=== PATIENT | female | born 1995 | race Caucasian/White ===

== ENCOUNTER 2017-04-10 20:09 | Emergency (ER) | payer MEDICAID, SELFPAY ==
[2017-04-10 20:10] VITALS: BP 120/75; PULSE 113; RESP 18; TEMP 37.4; O2SAT 99; BMI 25.8
--- NOTE | 2017-04-10 20:54 | ED.VISSUMM ---
- ER Visit Summary Date of Service: 04/10/17 Chief Complaint: [Redness and swelling to chin] History of Present Illness: The patient is a 21 F [resents the emergency department complaining of pain, redness, swelling to the left lower chin. Patient states that she slipped and fell yesterday and struck her chin on bathroom counter. No loss of consciousness. Patient did bite the inside of her left cheek. This morning she woke up and noted increased redness and swelling. Patient denies any fevers.] Physical Examination: [HEENT-PERRLA, EOMI. Cranial nerves II through XII grossly intact. TMs clear. Mucous membranes moist. No adenopathy. Patient has acne. Patient is noted to have soft tissue swelling to the left portion of the chin and submandibular region with what appears to be abrasion and suspected impetigo like lesion. Patient does have bite wound to the left pupil mucosa. Patient has no difficulty elevating her tongue to the roof of her mouth and there is no induration or tenderness to the floor the mouth. Cardiovascular-regular rate and rhythm without murmur or ectopy Lungs-clear to auscultation, chest wall stable without crepitus or subcu emphysema Abdomen-normoactive bowel sounds, soft, nontender, no rebound or rigidity, no peritoneal signs. Extremities-intact ?4, normal range of motion, normal pulses, atraumatic] Test Results: [None indicated] Emergency Department Course and Treatment: [Patient will be started on Bactrim and Keflex. Patient given first dose in the emergency department.] Treatment Plan: [Treat patient with Bactrim and Keflex] Disposition: [Discharged home in stable condition. Patient advised to follow-up Dr. Hernandez within the next 3-5 days. Patient to return if worsening pain, redness, swelling, fever, or condition should worsen in any way] Impression: [Cellulitis left face Contusion face status post fall] This note was generated with [employer] dictation software. It may contain incorrect words, spelling, and punctuation that were not noted in review of the chart prior to signing ED Disposition - Plan for ED Patient: Chief Complaint: Cellulitis Referrals: Jimmie Hernandez MD [Primary Care Provider] -
--- NOTE | 2017-04-10 20:57 | ED.DCSUM_ITS ---
- ER Visit Summary Date of Service: 04/10/17 Chief Complaint: [Redness and swelling to chin] History of Present Illness: The patient is a 21 F [resents the emergency department complaining of pain, redness, swelling to the left lower chin. Patient states that she slipped and fell yesterday and struck her chin on bathroom counter. No loss of consciousness. Patient did bite the inside of her left cheek. This morning she woke up and noted increased redness and swelling. Patient denies any fevers.] Physical Examination: [HEENT-PERRLA, EOMI. Cranial nerves II through XII grossly intact. TMs clear. Mucous membranes moist. No adenopathy. Patient has acne. Patient is noted to have soft tissue swelling to the left portion of the chin and submandibular region with what appears to be abrasion and suspected impetigo like lesion. Patient does have bite wound to the left pupil mucosa. Patient has no difficulty elevating her tongue to the roof of her mouth and there is no induration or tenderness to the floor the mouth. Cardiovascular-regular rate and rhythm without murmur or ectopy Lungs-clear to auscultation, chest wall stable without crepitus or subcu emphysema Abdomen-normoactive bowel sounds, soft, nontender, no rebound or rigidity, no peritoneal signs. Extremities-intact ?4, normal range of motion, normal pulses, atraumatic] Test Results: [None indicated] Emergency Department Course and Treatment: [Patient will be started on Bactrim and Keflex. Patient given first dose in the emergency department.] Treatment Plan: [Treat patient with Bactrim and Keflex] Disposition: [Discharged home in stable condition. Patient advised to follow- up Dr. Hernandez within the next 3-5 days. Patient to return if worsening pain, redness, swelling, fever, or condition should worsen in any way] Impression: [Cellulitis left face Contusion face status post fall] This note was generated with [employer] dictation software. It may contain incorrect words, spelling, and punctuation that were not noted in review of the chart prior to signing ED Disposition - Plan for ED Patient: Chief Complaint: Cellulitis Referrals: Jimmie Hernandez MD [Primary Care Provider] -
--- NOTE | 2017-04-10 20:57 | ED.DEP ---
ED Disposition - Plan for ED Patient: Chief Complaint: Cellulitis Instructions: ED Staph Infec Abx Tx Only, ED Cellulitis Facial Prescriptions: Cephalexin [Keflex] 500 mg PO Q6 #40 cap Smz/Tmp Ds [Bactrim Ds] 2 tab PO BID #40 tab Referrals: Jimmie Hernandez MD [Primary Care Provider] - 3-5 Days
[2017-04-10] MEDS: Smz/Tmp Ds Tablet 1 TABLET PO (20:58)
[2017-04-10] MEDS: Cephalexin 250 MG Capsule 500 MG PO (20:58)
[2017-04-10 21:00] VITALS: PULSE 92; RESP 16; O2SAT 96
--- NOTE | 2017-04-10 21:18 | ED.RN ---
[PT GIVEN DISCHARGE INSTRUCTIONS AND HOME GOING PRESCRIPTIONS AND VERBALIZES UNDERSTANDING.
== END 2017-04-10 21:19 | disposition home or self-care (01) ==
LOC: ED 21:00
PROVIDERS: Emergency Provider Emergency Medicine; Family Provider Family Medicine; PCP Family Medicine
DX: L03.211 Cellulitis of face (principal); S00.83XA Contusion of other part of head, initial encounter; Z79.899 Other long term (current) drug therapy; W01.198A Fall on same level from slipping, tripping and stumbling with subsequent striking against other object, initial encounter; Y93.89 Activity, other specified; Y92.002 Bathroom of unspecified non-institutional (private) residence as the place of occurrence of the external cause; Y99.8 Other external cause status
CPT/HCPCS: 99283

== ENCOUNTER 2017-04-16 18:39 | Emergency (ER) | payer MEDICAID, SELFPAY ==
[2017-04-16 18:40] VITALS: BP 132/74; PULSE 69; RESP 15; TEMP 36.2; O2SAT 98; BMI 25.8
--- NOTE | 2017-04-16 19:15 | RAD_ITS ---
STUDY: X-RAY CHEST REASON FOR EXAM: Female, 21 years old. Cough TECHNIQUE: PA and lateral views of the chest. COMPARISON: Prior comparison studies are not available for review at this time. FINDINGS: The lungs are clear and expanded. There is no demonstrated pleural abnormality. Normal size heart. Normal mediastinum and jenny. Normal visualized pulmonary arteries. Normal visualized aortic arch and descending thoracic aorta. Normal visualized thoracic spine. Normal visualized ribs, clavicles, and shoulders. There is no demonstrated abnormality of the visualized soft tissue structures of the upper abdomen. RAD/Chest PA and Lateral IMPRESSION: No radiographic evidence of acute cardiopulmonary disease. Electronically Signed: Kiesha Bauer MD at 19:55 EST , Service support ,
[2017-04-16 19:21] VITALS: PULSE 76; RESP 16
[2017-04-16] MEDS: Ipratropium/Albuterol Sulfate 3 ML AMPUL.NEB INHALATION (19:21)
--- NOTE | 2017-04-16 20:04 | ED.DCSUM_ITS ---
- ER Visit Summary Date of Service: 04/16/17 Chief Complaint: Cough History of Present Illness: The patient is a 21 F who presents with a cough. It is been present for about 2 weeks. She has had some red brown sputum and is concerned that it may be blood. She was also recently started on antibiotics for facial cellulitis. She has noted that since that time she has had some epigastric burning discomfort nausea and vomiting and diarrhea. She also reports intermittent wheezing associated with her cough. She denies feeling short of breath. She denies any other pain. Physical Examination: Afebrile vitals are normal Moist mucous membranes Heart regular rate and rhythm Scattered expiratory wheezes no distress speaking in full sentences no retractions Abdomen is soft no reproducible tenderness nondistended Test Results: Chest x-ray shows no acute process. Emergency Department Course and Treatment: I suspect the patient's GI upset nausea epigastric burning and diarrhea are likely related to antibiotics. She was given a GI cocktail. Her chest x-ray is normal. She does have a productive cough and wheezing. Her symptoms are most likely related to bronchitis. She was given a DuoNeb aerosol here as well. She was given a prescription for an albuterol inhaler. She was given a prescription for Pepcid. She was advised to use Imodium as needed for diarrhea and was discharged home. She does understand return for new or worsening symptoms. All questions answered at bedside. Treatment Plan: [] Disposition: Discharge Impression: Bronchitis Diarrhea Gastritis This note was generated with [employer] dictation software. It may contain incorrect words, spelling, and punctuation that were not noted in review of the chart prior to signing ED Disposition - Plan for ED Patient: Chief Complaint: Cough Referrals: Jimmie Hernandez MD [Primary Care Provider] -
--- NOTE | 2017-04-16 20:04 | ED.DEP ---
ED Disposition - Plan for ED Patient: Chief Complaint: Cough Instructions: Acute Bronchitis, ED Gastritis Prescriptions: Albuterol Inhaler [Ventolin Hfa] 1 - 2 puff INHALATION Q4H PRN PRN #1 inhaler PRN Reason: Wheezing Famotidine [Pepcid] 20 mg PO DAILY #30 tab Referrals: Jimmie Hernandez MD [Primary Care Provider] -
[2017-04-16 20:21] VITALS: RESP 18
== END 2017-04-16 20:21 | disposition home or self-care (01) ==
PROVIDERS: Emergency Provider Emergency Medicine; Family Provider Family Medicine; PCP Family Medicine
DX: J40 Bronchitis, not specified as acute or chronic (principal); K29.70 Gastritis, unspecified, without bleeding; R19.7 Diarrhea, unspecified; F41.9 Anxiety disorder, unspecified; Z79.899 Other long term (current) drug therapy
CPT/HCPCS: 71046; 94640; 99283

== ENCOUNTER → 2017-04-24 10:51 | Outpatient (CLI) | payer MEDICAID, SELFPAY ==
--- NOTE | 2017-04-24 | IMM_PTH ---
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 Lissa Campuzano MD : 1995 BED: DIS: SPEC #: [id number] RECD: 04/25/17 12:42 STATUS: KENAN REQ #: [id number] DEMETRI: 04/24/17 00:[address]: Lissa Campuzano DEPT: IMMUNOHISTOCHEMISTRY RECD BY: Obdulia Quiroz ENTERED: 04/25/17 12:44 SP TYPE: IMMUNO OTHR DR: Dr. Jimmie Hernandez MD Tissues: A - Lymph node of neck, NOS Procedures: BCL-2 (add) BCL-6 (add) CD10 (add) CD138 (add) CD15 (add) CD20 (add) CD23 (add) CD3 (add) CD30 (add) CD43 (add) CD45 (add) CD5 (add) CD79A (add) CYCLIN (add) KAPPA (add) LAMBDA (add) MACRO (add) MUM1 (add) Pankeratin (initial) PHYSIC[facility] [address] [address] SPECIMEN INFORMATION: Tissue Source: A ? FNA left neck lymph node Clinical Info: Enlarged lymph node left neck Specimen Number: [id number] CPT code: 35591, 26480 x18 METHODOLOGY: Deparaffinized sections of prefer/formalin-fixed tissue or PAP/DQ stained slides are incubated with monoclonal/polyclonal antibodies/oligonucleotide probes. Localization is made via biotin free immunoperoxidase method. Appropriate controls are performed and reacted as expected. Results on target cell population are indicated in the following table: RESULTS: ANTIBODY / CLONE RESULT AE1-3 (AE1/AE3/PCK26) negative CD3 (PS1) positive CD5 (SP10) positive CD20 (L26) positive, zonal CD43 (L60) positive CD45 (RP2/18) positive CD79a (11E3) positive, zonal CD138 (B-A38) negative [place] (polyclonal) negative Lambda (polyclonal) negative CD10 (56C6) negative CD15 (MMA) negative CD23 (1B12) negative CD30 (Mauro-H2) negative BCL-2 (bcl-2/100/D5) positive BCL-6 (EB685B/A8) positive, focal [place] D1/BCL-1 (SP4) negative MUM1 (MRQ-43) positive, zonal Macro (HAM-56) positive, focal These tests were developed and their performance characteristics determined by [facility]. They may not have been cleared or approved by the U.S. Food and Drug Administration. The FDA has determined that such clearance or approval is not necessary. INTERPRETATION: FNA left neck lymph node: Polytypic lymphoid tissue. AM:susu 04/26/17 Comment: There is no evidence of lymphoproliferative disorder.
--- NOTE | 2017-04-24 08:51 | FLU_PTH ---
PATIENT: CLAY BOWLING LOC: [facility] U#:[id number] AGE/SX: 29/F ROOM: RE04/24/[address]: Dr. Lissa Campuzano MD : 1995 BED: DIS: SPEC #: [id number] RECD: 04/24/17 14:31 STATUS: KENAN RE #: [id number] DEMETRI: 04/24/17 08:[address]: Lissa Campuzano DEPT: CYTOLOGY RECD BY: Ernie De La Torre ENTERED: 04/24/17 14:33 SP TYPE: Fluid OTHR DR: Dr. Jimmie Hernandez MD Tissues: A - Lymph node of neck, NOS B - Lymph node of neck, NOS Procedures: Pap Stain (control) Special Stain Group II Surgery Specimen Level IV Cell Block Cytospin Fluid HEADER OPERATION: Left upper neck mass fine needle aspiration, ultrasound-guided PRE-OP DIAGNOSIS: Enlarged lymph node left neck TISSUE SUBMITTED: A ? FNA left neck lymph node (mass)/fluid for cytology, B ? Four slides DIAGNOSIS CYTOLOGY A. Fine needle aspiration, left neck lymph node (cytospins and cell block): Polymorphous lymphocytes present. F. Fine needle aspiration, left neck lymph node (smears): Polymorphous lymphocytes with drying artifact. AM:susu 04/25/17 COMMENT Immunohistochemistry ([id number]) supports the above diagnosis. There is no evidence of lymphoproliferative disorder or metastic malignancy. Clinical correlation is suggested. CYTOLOGY STUDY Slides are reviewed. CYTOLOGY GROSS A - Received is 30 ml of brown cloudy fluid labeled with the patient's name and and designated per the requisition as left neck lymph node (mass). Submitted for cytology preparation including cell block. B - Received are four smears labeled with the patient's name and designated per the requisition as left neck lymph node (mass). Submitted for staining. 04/24/17 TC:5 CPT: 17720, 40551
== END ==
PROVIDERS: Visit Provider Surgery
DX: R59.0 Localized enlarged lymph nodes (principal)
CPT/HCPCS: 88108; 88305; 88313; 88341; 88342

== ENCOUNTER 2017-04-30 12:39 | Emergency (ER) | payer MEDICAID, SELFPAY ==
[2017-04-30 12:40] VITALS: BP 70/49; PULSE 80; RESP 20; TEMP 36.7; O2SAT 96; BMI 25.0
[2017-04-30 13:06] VITALS: PULSE 125; O2SAT 96
[2017-04-30 13:54] VITALS: BP 136/78; PULSE 98; RESP 16; O2SAT 100
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
--- NOTE | 2017-04-30 14:23 | ED.RN ---
Called PD for phone, no phone seen in her possession but he will check his cruiser. PD might come pick her up and arrest her but he will check with the other officer on the case and let us know. pt updated that her mom is not coming and she did state she thought her mom took her phone.
--- NOTE | 2017-04-30 14:29 | ED.VISSUMM ---
- ER Visit Summary Date of Service: 04/30/17 Chief Complaint: [] Not acting right concern for drug abuse History of Present Illness: The patient is a 21 F [] was basically brought in by police due to erratic behavior started at work. 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 There is some concern the part of police that she may have had drug paraphernalia that she dropped in the back of the police car Patient is crying and tearful saying that people are picking on her that she has had a rough time recently she denies any drug use, denies having drugs on her body or in any body cavity, states she did not sleep last night because of stress and she showed up to work she may not have been at her best but she does not believe she was acting in any erratic bizarre fashion. She is upset that the police are involved with her care she is concerned she might be arrested. sHe does indicate that she is on Seroquel and Vistaril for depression, she also reports history of PTSD she has been taking knows that she is followed by the counseling center here locally. She adamantly denies homicidal suicidal ideation she denies drug use, she denies head neck chest or abdominal pain she has no complaints and she simply wants to be left alone and discharged home as she is concerned she may be arrested by the police Physical Examination: [] Quite tearful we had to calm her down we went through the history as above again she has no complaints she is a thin woman she has chronic skin changes throughout her body she indicates related to picking at her skin her HEENT exam is unremarkable her neck is supple lungs are clear heart tones are normal abdomen soft nontender upper lower extremities unremarkable neurologically she is crying and tearful very emotional moving all 4 extremities. There is no hallucination no psychomotor agitation she is demonstrated capacity by understanding our concerns related to drug abuse body packing homicidal suicidal ideation she adamantly denies all of the above These were considering pink slipping her but then they declined to do that they have left, we recommended she undergo a mental health evaluation recommended blood test screening UA and UA tox she refuses that. We have explained her she needs to call for a ride home she will try to call her mother to pick her up and again we have counseled her to follow-up with the counseling center, to consider drug [facility] detox if she is abusing drugs and to return for change in symptoms Time her vital signs are normal she remains awake and alert she is much more calm of the police of left, she lives in a woman's retirement she wants to wear as that is her home. Given the lack of any credible suicidal homicidal ideations are pink slips and the fact she is awake coherent and demonstrated capacity to make decisions and she will be discharged home Test Results: [] Emergency Department Course and Treatment: [] Treatment Plan: [] Disposition: [] Stable Impression: [] Situational stress, concern regarding behavior possibly related to drug use patient denies, denies history of homicidal suicidal ideation This note was generated with [employer] software. It may contain incorrect words, spelling, and punctuation that were not noted in review of the chart prior to signing ED Disposition - Plan for ED Patient: Chief Complaint: Subst Abuse Instructions: Coping with PTSD Referrals: Jimmie Hernandez MD [Primary Care Provider] - Additional Instructions: Please follow-up with her family physicians and your counselors for your depressive disorder in the next 1-2 days
--- NOTE | 2017-04-30 14:37 | ED.DEP ---
ED Disposition - Plan for ED Patient: Chief Complaint: Subst Abuse Instructions: Coping with PTSD Referrals: Jimmie Hernandez MD [Primary Care Provider] - Additional Instructions: Please follow-up with her family physicians and your counselors for your depressive disorder in the next 1-2 days
[2017-04-30 14:56] VITALS: BP 130/78; PULSE 98; RESP 16; O2SAT 100
--- NOTE | 2017-04-30 14:59 | ED.RN ---
PT escorted by Police into cruiser and taken to long term. No problems with discharge.
== END 2017-04-30 14:59 | disposition home or self-care (01) ==
PROVIDERS: Emergency Provider Emergency Medicine; Family Provider Family Medicine; PCP Family Medicine
DX: F43.9 Reaction to severe stress, unspecified (principal); F32.9 Major depressive disorder, single episode, unspecified; F43.10 Post-traumatic stress disorder, unspecified; Z79.899 Other long term (current) drug therapy
CPT/HCPCS: 99283

== ENCOUNTER 2017-06-12 21:38 | Emergency (ER) | payer MEDICAID, SELFPAY ==
[2017-06-12 21:39] VITALS: BP 125/73; PULSE 98; RESP 17; TEMP 36.6; O2SAT 100; BMI 19.4
--- NOTE | 2017-06-12 22:40 | ED.VISSUMM ---
- ER Visit Summary Date of Service: 06/12/17 Chief Complaint: [] Pain and swelling to the right long fingertip History of Present Illness: The patient is a 21 F [] complaining of pain and swelling to her right long fingertip for the last 7 days. It started as a crack and then got infected. She is using ibuprofen. Current severity is mild to moderate. Worsened by touching and movement. Came in for further evaluation. No drainage. Physical Examination: [] Vital signs reviewed General: Well-nourished well-developed Head: Normocephalic atraumatic Eyes: Pupils equal round and reactive to light extraocular movements intact ENT: TMs clear no hemotympanum no trauma Neck: Nontender full range of motion Cardiovascular: Regular rate rhythm no murmurs normal S1-S2 Respiratory: No distress clear to auscultation bilaterally chest nontender Abdomen: Soft nontender nondistended normal bowel sounds no masses Back: Nontender no CVA tenderness Extremities: Long finger tip has redness at the base of the cuticle that is mild. There is no abscess or paronychia. It is tender. She has some underside diffuse swelling of the distal phalanx as well with no abscess. I do not suspect a felon. There is no change in color of the fingertip. It does not involve the joint line. There is no streaking. Neuro alert oriented cranial nerves II through XII intact normal strength sensation reflexes Test Results: [] Emergency Department Course and Treatment: [] Discussed doing an I&D with the patient. Decided to hold off as there is no fluctuant areas. At this time I do not see any fluctuant areas to suggest a felon or paronychia. I think she just has a soft tissue inflammation and infection. This likely started as a cuticle infection. She will be given Bactrim Keflex and oxycodone and ice pack. She will return if she worsens despite treatment or if it develops discoloration to suspect an abscess that can be drained. Treatment Plan: [] Disposition: [] Impression: [] Right fingertip infection This note was generated with [employer] software. It may contain incorrect words, spelling, and punctuation that were not noted in review of the chart prior to signing ED Disposition - Plan for ED Patient: Chief Complaint: Cellulitis Referrals: Jimmie Hernandez MD [Primary Care Provider] -
--- NOTE | 2017-06-12 22:43 | ED.DEP ---
ED Disposition - Plan for ED Patient: Disposition: Home or Assisted Living Chief Complaint: Cellulitis Instructions: ED Fingernail Infec Prescriptions: Oxycodone HCl/Acetaminophen [Percocet 5/325] 1 tab PO Q6H PRN PRN 3 Days #12 tab PRN Reason: Pain Cephalexin [Keflex] 500 mg PO Q6 #28 cap Smz/Tmp Ds [Bactrim Ds] 1 tab PO BID #14 tab Referrals: Jimmie Hernandez MD [Primary Care Provider] -
[2017-06-12] MEDS: Cephalexin 250 MG Capsule 500 MG PO (23:15)
[2017-06-12] MEDS: Smz/Tmp Ds Tablet 1 TABLET PO (23:15)
[2017-06-12] MEDS: oxyCODONE 5 MG Tablet PO (23:15)
[2017-06-12 23:16] VITALS: RESP 16
== END 2017-06-12 23:16 | disposition home or self-care (01) ==
PROVIDERS: Emergency Provider Emergency Medicine; Family Provider Family Medicine; PCP Family Medicine
DX: L08.89 Other specified local infections of the skin and subcutaneous tissue (principal); Z79.899 Other long term (current) drug therapy
CPT/HCPCS: 99283

== ENCOUNTER 2017-06-16 01:32 | Emergency (ER) | payer MEDICAID, SELFPAY ==
[2017-06-16 01:33] VITALS: BP 112/74; PULSE 108; RESP 16; TEMP 36.4; O2SAT 98; BMI 19.5
--- NOTE | 2017-06-16 01:42 | RAD_ITS ---
STUDY: X-RAY - RIGHT HAND, ATTENTION RIGHT MIDDLE FINGER REASON FOR EXAM: Female, 21 years old. Pain and swelling TECHNIQUE: view(s) of the finger were obtained. COMPARISON: None. FINDINGS: Normal metacarpal head. Normal metacarpophalangeal joint. Normal proximal phalanx. Normal middle phalanx. Normal distal phalanx. Normal proximal interphalangeal joint. Normal distal interphalangeal joint. There is subcutaneous soft tissue swelling at the tip of the middle finger suggesting edema. RAD/Finger(s) Min 2 Views IMPRESSION: There is subcutaneous soft tissue swelling at the tip of the middle finger suggesting edema. Electronically Signed: Heron Luciano MD at 2:06 EDT Tel , Service support ,
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
--- NOTE | 2017-06-16 02:31 | ED.DEP ---
ED Disposition - Plan for ED Patient: Chief Complaint: Wound Instructions: ED Abscess IandD Referrals: Jimmie Hernandez MD [Primary Care Provider] - Carlito Butt MD [STAFF PHYSICIAN] - 3-5 Days
[2017-06-16 02:43] VITALS: BP 110/65; PULSE 92; RESP 16; O2SAT 96
== END 2017-06-16 02:44 | disposition home or self-care (01) ==
LOC: ED 01:55
PROVIDERS: Emergency Provider Emergency Medicine; Family Provider Family Medicine; PCP Family Medicine
DX: L03.011 Cellulitis of right finger (principal); Z72.0 Tobacco use; Z79.2 Long term (current) use of antibiotics; Z79.899 Other long term (current) drug therapy
CPT/HCPCS: 26011; 10060; 73140; 99283

== ENCOUNTER 2017-07-27 21:05 | Emergency (ER) | payer MEDICAID, SELFPAY ==
[2017-07-27 21:08] VITALS: BP 106/84; PULSE 100; RESP 18; TEMP 36.7; O2SAT 99; BMI 20.5
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
--- NOTE | 2017-07-27 23:02 | ED.DEP ---
ED Disposition - Plan for ED Patient: Chief Complaint: Other, Pain/Inj Instructions: ED Fx Rib, ED Infec Skin Cellulitis Prescriptions: Cephalexin [Keflex] 500 mg PO Q6 #40 cap Hydrocodone/Acetaminophen [[place] 5-325 Tablet] 1 - 2 ea PO 4X/DAY PRN PRN 5 Days #20 tab PRN Reason: Pain Referrals: Jimmie Hernandez MD [Primary Care Provider] - 5-7 Days
--- NOTE | 2017-07-27 23:05 | DCINST.ED_ITS ---
ED Disposition - Plan for ED Patient: Chief Complaint: Other, Pain/Inj Instructions: ED Fx Rib, ED Infec Skin Cellulitis Prescriptions: Cephalexin [Keflex] 500 mg PO Q6 #40 cap Hydrocodone/Acetaminophen [[place] 5-325 Tablet] 1 - 2 ea PO 4X/DAY PRN PRN 5 Days #20 tab PRN Reason: Pain Referrals: Jimmie Hernandez MD [Primary Care Provider] - 5-7 Days
[2017-07-27] MEDS: Cephalexin 250 MG Capsule 500 MG PO (23:10)
[2017-07-27] MEDS: HYDROcodone Bitartrate/Apap 5/325 Tablet PO (23:11)
== END 2017-07-27 23:13 | disposition home or self-care (01) ==
PROVIDERS: Emergency Provider Emergency Medicine; Family Provider Family Medicine; PCP Family Medicine
DX: S22.22XA Fracture of body of sternum, initial encounter for closed fracture (principal); L02.31 Cutaneous abscess of buttock; L03.317 Cellulitis of buttock; Z72.0 Tobacco use; Y04.2XXA Assault by strike against or bumped into by another person, initial encounter; Y93.I9 Activity, other involving external motion; Y92.410 Unspecified street and highway as the place of occurrence of the external cause; Y99.8 Other external cause status
CPT/HCPCS: 71046; 71120; 99283

== ENCOUNTER 2017-08-31 14:08 | Emergency (ER) | payer MEDICAID, SELFPAY ==
[2017-08-31 14:09] VITALS: BP 118/83; PULSE 120; RESP 18; TEMP 36.6; O2SAT 99; BMI 20.3
--- NOTE | 2017-08-31 15:03 | ED.VISSUMM ---
- ER Visit Summary Date of Service: 08/31/17 Chief Complaint: Lip infection History of Present Illness: The patient is a 21 F states that last night she bit her lower lip. She states that this is a nervous habit she has. She states that by this afternoon it was swollen. She denies any problems swallowing. No tongue swelling. No floor the mouth swelling. No fevers. She states that she recently tested positive for hepatitis C and wonders if she should go to the specialist that her doctor referred her to. Physical Examination: Afebrile vital signs are stable noted tachycardia in triage. Heart rate is 107 on my exam The lower left lip is swollen. There is an associated abrasion. There is no purulence. Though the lip is swollen is still soft. There is no oral swelling. Patient is very anxious. Emergency Department Course and Treatment: Her on Augmentin. Use mouth rinses. May follow-up with her family doctor. She was encouraged to follow-up with the specialist her doctor referred her to for hepatitis C. Impression: 1. Lower lip infection This note was generated with [employer] dictation software. It may contain incorrect words, spelling, and punctuation that were not noted in review of the chart prior to signing ED Disposition - Plan for ED Patient: Disposition: Home or Assisted Living Chief Complaint: Abscess Prescriptions: Amox/Clavulanate Tablet [Augmentin Tablet] 875 mg PO Q12H #20 tab Referrals: Jimmie Hernandez MD [Primary Care Provider] - 3-5 Days if not improving
== END 2017-08-31 15:30 | disposition home or self-care (01) ==
LOC: ED 15:28
PROVIDERS: Emergency Provider Emergency Medicine; Family Provider Family Medicine; PCP Family Medicine
DX: L08.9 Local infection of the skin and subcutaneous tissue, unspecified (principal)
CPT/HCPCS: 99282

== ENCOUNTER 2018-04-27 04:13 | Emergency (ER) | payer MEDICAID, SELFPAY ==
[2018-04-27 04:13] VITALS: BMI 25.8
[2018-04-27 04:15] VITALS: BP 123/93; PULSE 106; RESP 16; TEMP 36.8; O2SAT 100; BMI 21.4
[2018-04-27 04:28] VITALS: RESP 16
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
[2018-04-27 04:36] LABS: Mucous, Urine 0 SEEN /hpf (<or=2+)
[2018-04-27 04:39] LABS: Color, Urine Yellow (Yellow); Glucose, Dipstick Normal (Normal); Ketone-Dipstick Negative (Negative); Leukocyte Esterase-Dipstick 500 /ul (Negative); Nitrite-Dipstick Negative (Negative); Occult Blood-Urine 25 /ul (Negative); Protein-Dipstick Negative (Negative); Urine Bilirubin Dipstick Negative (Negative); Urine Clarity Clear (Clear); Urine Urobilinogen Normal (Normal)
[2018-04-27 04:51] LABS: Bacteria 1+ /hpf (None Seen); Internal QC Validated? YES +Cl - CLEAR BKGD; Pregnancy, Urine Negative Negative; White Blood Cells 10-25 SEEN /hpf (0-5)
[2018-04-27 04:52] LABS: Red Blood Cells-Urine 0-5 SEEN /hpf (0-5); Squamous Epithelial Cells - UA 5-10 SEEN /hpf (5-10)
--- NOTE | 2018-04-27 05:10 | ED.DEP ---
ED Disposition - Plan for ED Patient: Disposition: Home or Assisted Living Instructions: ED UTI Cystitis Female Prescriptions: Smz/Tmp Ds [Bactrim Ds] 1 tablet PO BID #6 tablet Referrals: Meredith Blas MD [STAFF PHYSICIAN] - 10-14 Days if not better
[2018-04-27] MEDS: Smz/Tmp Ds Tablet 1 TABLET PO (05:17)
[2018-04-27 05:18] VITALS: BP 120/84; PULSE 95; RESP 16; O2SAT 100
[2018-04-27 06:23] LABS: Chlamydia Trachomatis by PCR Negative (Negative); Probe Check PASS
[2018-04-27 06:24] LABS: Neisserai gonorrhoeae by PCR Positive (Negative)
--- NOTE | 2018-04-27 06:27 | ED.RN ---
DR JACKSON NOTIFIED OF GONORRHEA RESULTS
--- NOTE | 2018-04-27 06:41 | ED.RN ---
THIS NURSE SPOKE WITH PT ABOUT HER RESULTS. PT REQUEST PRESCRIPTION BE [facility] [place]. PRESCRIPTION FOR CEFIXIME 400MG X1 AND DOXYCYCLINE 100MG BID X7 DAYS ORDERED BY DR JACKSON
== END 2018-04-27 05:44 | disposition home or self-care (01) ==
PROVIDERS: Emergency Provider Emergency Medicine; Family Provider Family Medicine; PCP Family Medicine
DX: N30.90 Cystitis, unspecified without hematuria (principal); A54.9 Gonococcal infection, unspecified
CPT/HCPCS: 81001; 81025; 87491; 87591; 99282

== ENCOUNTER 2018-05-01 06:58 | Emergency (ER) | payer MEDICAID, SELFPAY ==
[2018-05-01 06:59] VITALS: BP 113/84; PULSE 102; RESP 15; TEMP 36.4; O2SAT 100; BMI 22.2
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
[2018-05-01] MEDS: Cephalexin 250 MG Capsule 500 MG PO (08:01)
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
== END 2018-05-01 09:02 | disposition home or self-care (01) ==
PROVIDERS: Emergency Provider Emergency Medicine; Family Provider Family Medicine; PCP Family Medicine
DX: S06.0X0A Concussion without loss of consciousness, initial encounter (principal); S00.33XA Contusion of nose, initial encounter; S51.812A Laceration without foreign body of left forearm, initial encounter; L08.9 Local infection of the skin and subcutaneous tissue, unspecified; Y04.2XXA Assault by strike against or bumped into by another person, initial encounter; Y93.89 Activity, other specified; Y92.89 Other specified places as the place of occurrence of the external cause; Y99.8 Other external cause status
CPT/HCPCS: 70160; 99283

== ENCOUNTER 2018-07-01 23:21 | Emergency (ER) | payer MEDICAID, SELFPAY ==
[2018-07-01 23:22] VITALS: BP 124/69; PULSE 122; RESP 18; TEMP 37; O2SAT 100; BMI 22.5
[2018-07-01 23:48] VITALS: BP 115/75; PULSE 102; RESP 14; TEMP 36.6; O2SAT 98
--- NOTE | 2018-07-01 23:59 | ED.DCSUM_ITS ---
History of Present Illness Chief Complaint: Abd Pain Narrative: Patient presents with intermittent abdominal pain after eating. Is been an ongoing issue for several months. She has chronic bulimia. She has been purging once a day. She also has intermittent nausea. She has had dyclonine and Zofran in the past but does not have them currently. She went to the ER in [place] 2 weeks ago and told it was gastritis. She stated they kept her for 2 days. Her workup was otherwise negative. She has persistent symptoms. Denies any diarrhea. Pain is diffuse and cramping. Past Medical History - Allergies and Home Meds Allergies/Adverse Reactions: Allergies azithromycin [From Zithromax] Allergy (Verified 07/01/18 23:26) Vomiting Primary Care Physician: Jimmie Hernandez MD [Primary Care Provider] - Prior records reviewed: Yes Past Medical History: - - Bulimia Surgical History: noncontributory Smoking Status: Never smoker Alcohol: None Drugs: None Review of Systems General: Denies: Chills, Fever, Sweats Eyes: Denies: Visual changes - bilaterally, Diplopia ENT: Denies: Rhinorrhea, Sore throat Cardiovascular: Denies: Chest pain, Palpitations Respiratory: Denies: Dyspnea, Cough, Dyspnea on exertion Gastrointestinal: Reports: Abdominal pain, Nausea, Vomiting. Denies: Diarrhea, Melena, Hematochezia Genitourinary: Denies: Dysuria, Hematuria, Frequency Musculoskeletal: Denies: Back pain, Extremity Pain Skin: Denies: Rash, Wounds Neurological: Denies: Headache, Weakness, Numbness Physical Exam Vital Signs/Narrative: Vital Signs Temp Pulse Resp BP Pulse Ox 07/01/18 23:48 98 F 102 H 14 115/75 98 07/01/18 23:22 98.6 F 122 H 18 124/69 H 100 General: Well nourished, Well developed, No Acute Distress Head: Normocephalic, Atraumatic Eyes: Perrl, EOMI ENT: Moist mucous membranes, No rhinorrhea Neck: Supple, Nontender Cardiovascular: Regular rate, Regular rhythm, No murmurs Respiratory: No distress, CTA bilaterally, Chest nontender Abdomen: Soft, Nontender, Nondistended, Normal bowel sounds Back: Nontender, Normal Inspection Extremities: Nontender, No edema Skin: Normal color, No rash Neurological: Alert, Oriented x3, Cranial nerves II-XII grossly intact, Normal Strength, Normal Sensation Psychological: Normal affect, Normal Mood Diagnostic/Tx/Re-eval - Medical Decision Making Patient given IV fluids, Zofran and a GI cocktail as well as Toradol. Lab work obtained lab work shows a very slight leukocytosis with elevated white blood cells and bacteria in the urine consistent with urinary tract infection. Given Bactrim and urine culture sent. She has chronic hepatitis C per patient. She has very slight elevation in her liver function tests due to this. She is resting comfortably will given a prescription for Zofran, Bactrim and Bentyl for home. All questions were answered and she will follow-up. Instructed to try not to purge. She is asking for a GI referral and will be given this. ED Disposition - Plan for ED Patient: Disposition: Home or Assisted Living Diagnosis: Urinary tract infection, Chronic abdominal pain Instructions: ED UTI Cystitis Female Prescriptions: Ondansetron [Zofran Odt] 4 mg PO Q8H PRN PRN #10 tab PRN Reason: Nausea Dicyclomine HCl [Bentyl] 20 mg PO TIDAC #20 cap Smz/Tmp Ds [Bactrim Ds] 1 tab PO BID #14 tab Referrals: Jimmie Hernandez MD [Primary Care Provider] - Guillaume Alba MD [NON-STAFF] -
[2018-07-02 00:32] LABS: Mucous, Urine 0 SEEN /hpf (<or=2+); Squamous Epithelial Cells - UA 0 SEEN /hpf (5-10)
[2018-07-02 00:33] VITALS: BP 118/70; RESP 18; TEMP 40.5; O2SAT 99
[2018-07-02 00:34] LABS: Color, Urine Yellow (Yellow); Glucose, Dipstick Normal (Normal); Ketone-Dipstick Negative (Negative); Leukocyte Esterase-Dipstick 500 /ul (Negative); Nitrite-Dipstick Negative (Negative); Occult Blood-Urine 25 /ul (Negative); Protein-Dipstick Negative (Negative); Specific Gravity, Urine 1.005 (1.002-1.030); Urine Bilirubin Dipstick Negative (Negative); Urine Clarity Sl. Cloudy (Clear); Urine Urobilinogen Normal (Normal)
[2018-07-02 00:37] LABS: Internal QC Validated? YES +Cl - CLEAR BKGD; Pregnancy, Urine Negative Negative
[2018-07-02 00:42] LABS: Bacteria 1+ /hpf (None Seen); Red Blood Cells-Urine 0-5 SEEN /hpf (0-5); White Blood Cells 5-10 SEEN /hpf (0-5)
[2018-07-02] MEDS: Ketorolac 30 MG/ML Syringe IV (00:44)
[2018-07-02] MEDS: Ondansetron 4 MG/2 ML Vial IV (00:44)
[2018-07-02] MEDS: Mag Hydrox/Al Hydrox/Simeth 30 ML UDC PO (00:44)
[2018-07-02] MEDS: 0.9% Normal Saline 1,000 ML 1000 ML IV (00:44)
[2018-07-02 00:59] LABS: Absolute Lymphocyte Count 2.82 X10^3/ul (0.83-4.51); Absolute Neutrophil Count 11.4 X10^3/uL (2.0-7.7); Basophil# 0.03 X10^3/uL; Basophil% 0.2 % (0-1); Eosinophil# 0.16 X10^3/uL; Eosinophils% 1.1 % (0-5); Hematocrit 38.3 % (37-47); Hemoglobin 12.6 g/dl (12.0-15.0); Lymphocyte # 2.82 X10^3/ul (4.0); Lymphocyte % 18.7 % (19-41); Mean Corp Hgb Conc 32.9 g/gl (32-36); Mean Corpuscular Hgb 30.4 pg (27.0-32.0); Mean Corpuscular Volume 92.3 fL (81-99); Monocyte# 0.61 X10^3/uL; Monocyte% 4.1 % (0-10); Neutrophil # 11.38 X10^3/uL (2.7-7.7); Neutrophil % 75.6 % (47-70); Platelet Count 335 K/mm3 (150-450); RBC Distribution Width CV 13.5 % (11.6-14.6); RBC Distribution Width SD 45.4 fl (35.1-43.9); Red Blood Count 4.15 M/mm3 (4.2-5.4); White Blood Count 15.1 K/mm3 (4.4-11.0)
[2018-07-02 01:00] LABS: Differential Indicated SCAN CRITERIA MET; POSITIVE COUNT NO; POSITIVE DIFFERENTIAL NO; POSITIVE MORPHOLOGY YES
[2018-07-02 01:03] LABS: ALB/GLOB Ratio 1.1 RATIO (0.9-2.4); AST(SGOT) 73 U/L (15-37); Alanine Aminotransfer ALT/SGPT 167 U/L (13-56); Albumin, Serum 4.1 g/dL (3.2-5.0); Alkaline Phosphatase 127 U/L (45-117); Anion Gap 6 (5-15); BUN 7 mg/dL (7-18); BUN/Creat Ratio 9.5 RATIO (10-20); Calcium,Total 9.2 mg/dL (8.5-10.1); Chloride 104 mmol/L (98-107); Creatinine, Serum 0.74 mg/dL (0.55-1.02); EST Glomerular Filtration Rate 105 mL/min (>60); Est Glom Filt Rate - Afr Amer 127 mL/min (>60); Estimated Creatinine Clearance 121.31 ml/min; Globulin 3.9 g/dL (2.2-4.2); Glucose 95 mg/dL (74-106); Potassium 3.6 mmol/L (3.5-5.1); Sodium Level 138 mmol/L (136-145)
[2018-07-02 01:19] LABS: Reactive Lymphocyte 1+
[2018-07-02 01:51] VITALS: BP 111/70; PULSE 90; PULSE 95; RESP 14; TEMP 36.6; O2SAT 98
[2018-07-02 01:54] VITALS: TEMP 36.6
[2018-07-02 01:55] VITALS: BP 111/70; PULSE 95; RESP 14; TEMP 36.6; O2SAT 98
[2018-07-02] MEDS: Smz/Tmp Ds Tablet 1 TABLET PO (02:02)
--- NOTE | 2018-07-02 02:39 | ED.RN ---
Pt called out after being discharged stating her hands and feet are itching. Dr Alves notified and gave her the option of taking Benadryl or changing antibiotic to Cipro. Pt requested change to cipro. Bactrim prescription shredded and new cipro prescription given. Pt satisfied and ambulated self out of ED with steady gait. Denies further needs.
== END 2018-07-02 02:51 | disposition home or self-care (01) ==
PROVIDERS: Emergency Provider Emergency Medicine; Family Provider Family Medicine; PCP Family Medicine
DX: N39.0 Urinary tract infection, site not specified (principal); G89.29 Other chronic pain; R10.9 Unspecified abdominal pain; F50.2 Bulimia nervosa; B18.2 Chronic viral hepatitis C
CPT/HCPCS: 80053; 81001; 81025; 85025; 87086; 87088; 96361; 96374; 96375; 99283; J7030; A4216; J2405

== ENCOUNTER 2018-07-21 03:35 | Outpatient (REF) | payer SELFPAY ==
--- NOTE | 2018-07-25 16:56 | ED.RN ---
patient called in and requested results. Advised patient that no test was preformed. Patient stated she received phone call. Advised [address] [facility] probably attempted to contact her.
== END 2018-07-21 07:35 | disposition home or self-care (01) ==
LOC: EDREF 03:35
DX: Z04.41 Encounter for examination and observation following alleged adult rape (principal)

== ENCOUNTER 2018-09-04 22:00 | Emergency (ER) | payer MEDICAID, SELFPAY ==
[2018-09-04 22:02] VITALS: BP 136/86; PULSE 106; RESP 15; TEMP 37.1; O2SAT 97; BMI 23.8
--- NOTE | 2018-09-04 22:52 | ED.DCSUM_ITS ---
- ER Visit Summary Date of Service: 09/04/18 Chief Complaint: bug bites History of Present Illness: The patient is a 22 F who presents for 1 month of bug bites. Patient lives in a women's group home. She shares clothing with other residents. Patient has been having blisters show up intermittently at anmol ious points of her body that developed into a red nodule and draining pus. Patient has noted them on her face, neck, buttock, back and extremities. She thought they were insect bites. She denies any fever or other constitutional symptoms. Physical Examination: Vital signs: afebrile, hemodynamically stable, no hypoxia on room air General: well nourished, well developed, in no distress Skin: warm, dry, no pallor, scattered erythematous nodules on the neck, face, one on the right buttock, torso, and extremities with a pustular center in various stages of healing, some chest forming and some scabbed over, a couple that have entered the healing process. No large abscesses noted. HEENT: normocephalic and atraumatic; PERRL, EOMI, moist mucous membranes Cardiovascular: regular rate and rhythm without murmurs, no peripheral edema, 2+ pulses all distal extremities Respiratory: No increased work of breathing, lungs are clear to auscultation bilaterally, no rales, rhonchi or wheezing Abdominal: Abdomen is soft, nontender with normoactive bowel sounds, no guarding or rebound, no masses MSK: Moves all extremities, no deformities, normal strength Neuro: Awake and alert, oriented ?4. No facial droop, sensation and motor function intact and symmetric Test Results: [] Emergency Department Course and Treatment: Patient's concern for the bug bites is more concerning for a staph infection. She does have pustular lesions that are not consistent with an insect bite. Because they are scattered all over her body, patient was started on clindamycin for treatment of staph infection. She was also given a prescription for mupirocin ointment. We discussed hygiene and not sharing any clothing, sheets, towels or anything else that could pass infection from one person to another. Patient has no evidence of any systemic issues, no heart murmur, no adventitious breath sounds, that would be concerning for endocarditis, given her past history of drug use. Patient discharged home well-appearing and in no distress. Treatment Plan: [] Disposition: [] Impression: Staph skin infection This note was generated with [employer] dictation software. It may contain incorrect words, spelling, and punctuation that were not noted in review of the chart prior to signing ED Disposition - Plan for ED Patient: Disposition: Home or Assisted Living Instructions: Folliculitis, MRSA SKIN INFECTION, Suspected or Confirmed Prescriptions: Mupirocin [Bactroban] 1 applic TOPICAL TID 10 Days #1 tube Prescription Printed Clindamycin [Cleocin] 300 mg PO 4X/DAY #80 cap Prescription Printed Referrals: Care Physician,No Primary [Primary Care Provider] - [facility] [Outside] - 5-7 Days Additional Instructions: Your bug bites looks more concerning for staph infection, possibly MRSA. Do not share clothes, towels or other hygiene items with other people. Use the antibiotic prescriptions as directed. If you have any worsening of your condition or any new concerning symptoms, please return immediately to the emergency department for another evaluation.
[2018-09-04] MEDS: Clindamycin HCl 150 MG Capsule 300 MG PO (23:02)
== END 2018-09-04 23:06 | disposition home or self-care (01) ==
PROVIDERS: Emergency Provider Emergency Medicine
DX: A49.02 Methicillin resistant Staphylococcus aureus infection, unspecified site (principal)
CPT/HCPCS: 99283

== ENCOUNTER 2018-09-27 20:10 | Emergency (ER) | payer MEDICAID, SELFPAY ==
[2018-09-27 20:11] VITALS: BP 120/70; PULSE 122; RESP 16; TEMP 36.7; O2SAT 97; BMI 19.7
[2018-09-27 21:41] LABS: Internal QC Validated? YES +Cl - CLEAR BKGD; Pregnancy, Urine Negative Negative
--- NOTE | 2018-09-27 21:43 | ED.DCSUM_ITS ---
History of Present Illness Chief Complaint: General Illness Detail of Chief Complaint: vaginal discharge Informant: Patient Onset: Days - 3 Context: Gradual Onset Timing: Continuous Quality: uncomfortable Location: vaginal Current Severity: Moderate Maximum Severity: Moderate Narrative: Vaginal discharge and discomfort after having unprotected intercourse with a partner that I do not trust. Has a history of gonorrhea and she thinks this is similar. Also states she has several other issues. She is concerned that when she bends over to do toe touches, her toes turn blue. When she stands back up, they do go back to normal. 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 She has had no mucosal or gingival bleeding, tongue bruising, or spontaneous bleeding from anywhere. States she has not had her platelets checked in a long time. [facility]. She has no PCP. She also states that because of various skin lesions that grow in various areas including her neck, left arm, left leg, right breast, in addition to the pelvic infections she has had in the past, she has been on antibiotics almost constantly for the past 4 or 5 months. She is also using mupirocin ointment on some of these lesions. She finished cephalexin 3 days ago and has found that some of these lesions are cropping back up and getting worse, as they did not completely resolve but while she was on the cephalexin, they were all improving. - Past Medical History (1) Sexually transmitted infection Status: Chronic Past Medical History - Allergies and Home Meds Allergies/Adverse Reactions: Allergies azithromycin [From Zithromax] Allergy (Verified 09/27/18 20:15) Vomiting sulfamethoxazole [From Bactrim] Allergy (Verified 09/27/18 20:15) Swelling trimethoprim [From Bactrim] Allergy (Verified 09/27/18 20:15) Swelling Primary Care Physician: Care Physician,No Primary [Primary Care Provider] - Surgical History: noncontributory Smoking Status: Current every day smoker Drugs: None Review of Systems General: Denies: Chills, Fever, Sweats Eyes: Denies: Visual changes - bilaterally, Diplopia ENT: Denies: Rhinorrhea, Sore throat Cardiovascular: Denies: Chest pain, Palpitations Respiratory: Denies: Dyspnea, Cough, Dyspnea on exertion Gastrointestinal: Denies: Abdominal pain, Nausea, Vomiting, Diarrhea, Melena, Hematochezia Genitourinary: Reports: - - Vaginal discharge and discomfort. Denies: Dysuria, Hematuria, Frequency Musculoskeletal: Denies: Back pain, Extremity Pain Skin: Denies: Rash, Wounds Neurological: Denies: Headache, Weakness, Numbness Psych: Reports: Anxiety Hematologic: Reports: Easy bruising, Easy bleeding Allergy: Denies: Uticaria, Swelling of the mouth, Swelling of the tongue Physical Exam Vital Signs/Narrative: Vital Signs Temp Pulse Resp BP Pulse Ox 09/27/18 20:11 98.1 F 122 H 16 120/70 97 Inital Vital Signs reviewed: Yes General: Well nourished, Well developed, No Acute Distress Head: Normocephalic, Atraumatic Eyes: Perrl, EOMI ENT: Moist mucous membranes, No rhinorrhea Neck: Supple, Nontender, No lymphadenopathy Back: Normal Inspection. Negative for: CVA tenderness Extremities: No edema, Tenderness - Only chronic-appearing wound left lower extremity, superficial Skin: Normal color, No Trauma, - - Several small papular lesions on left arm, right neck, right breast, left leg. Most are very mildly tender. The one on the left leg has some mild erythema and is more tender, there is no expressed will discharge, no abscess. On the neck and left upper extremity they are very, very small, less than a centimeter. Neurological: Alert, Oriented x3, Cranial nerves II-XII grossly intact, Normal Strength, Normal Sensation, Normal Gait Psychological: Normal Mood, - - anxious Diagnostic/Tx/Re-eval - Medical Decision Making Urine sent for gonorrhea and chlamydia, will cover her for both. She is allergic to sulfa medication. We will give her an injection of Rocephin 250 mg and a prescription for Doxy, since she is allergic to azithromycin, which should cover her for the skin issue as well. She was advised that she needs to follow- up and so we referred her to the next doctor on the no doc list. ED Disposition - Plan for ED Patient: Disposition: Home or Assisted Living Diagnosis: Sexually transmitted infection, Skin sore Instructions: Understanding STDs Prescriptions: Doxycycline 100 mg PO BID #14 cap Prescription Printed Referrals: Jaja Encarnacion MD [STAFF PHYSICIAN] - 3-5 Days if not improving Additional Instructions: Twice daily for 7 days, smear the mupirocin ointment into your nostrils
[2018-09-27] MEDS: Doxycycline 100 MG CAPSULE PO (22:07)
[2018-09-27] MEDS: Ceftriaxone 500 MG Vial 250 MG IM (22:07)
[2018-09-27 22:43] VITALS: PULSE 90; RESP 16
[2018-09-27] MEDS: Azithromycin 250 MG Tablet 1000 MG PO (22:55)
[2018-09-27] MEDS: DiphenhydrAMINE 25 MG Capsule 50 MG PO (22:56)
--- NOTE | 2018-09-27 22:59 | ED.RN ---
PATIENT THOUGHT SHE WAS HAVING AN ALLERGIC REACTION TO DOXY. STATES SHE ONLY HAD NAUSEA WITH ZITHROMAX. DR SALES AWARE. PT PLACED ON PULSE OX. WILL MONITOR.
[2018-09-27 23:01] VITALS: O2SAT 99
[2018-09-27 23:26] LABS: Chlamydia Trachomatis by PCR Negative (Negative); Probe Check PASS
[2018-09-27 23:27] LABS: Neisserai gonorrhoeae by PCR Positive (Negative)
--- NOTE | 2018-09-27 23:30 | ED.RN ---
lab called with positive results. positive for gonorrhoea. Dr. Ashraf made aware no new orders at this time
--- NOTE | 2018-09-27 23:41 | ED.RN ---
PATIENT STATES SHE IS FEELING BETTER. NO S/S REACTION NOTE.
[2018-09-27 23:42] VITALS: PULSE 99; RESP 16; O2SAT 99
== END 2018-09-27 23:42 | disposition home or self-care (01) ==
PROVIDERS: Emergency Provider Emergency Medicine
DX: A54.9 Gonococcal infection, unspecified (principal); R23.8 Other skin changes; T36.4X5A Adverse effect of tetracyclines, initial encounter; F17.200 Nicotine dependence, unspecified, uncomplicated; D69.3 Immune thrombocytopenic purpura
CPT/HCPCS: 81025; 87491; 87591; 96372; 99283

== ENCOUNTER 2018-10-01 10:12 | Emergency (ER) | payer MEDICAID, SELFPAY ==
[2018-10-01 10:14] VITALS: BP 99/63; PULSE 101; RESP 17; TEMP 36.9; O2SAT 98; BMI 23.2
--- NOTE | 2018-10-01 10:40 | ED.VISSUMM ---
- ER Visit Summary Date of Service: 10/01/18 Chief Complaint: [] History of Present Illness: The patient is a 22 F [] Physical Examination: [] Test Results: [] Emergency Department Course and Treatment: [] Treatment Plan: [] Disposition: [] Impression: [] This note was generated with [employer] dictation software. It may contain incorrect words, spelling, and punctuation that were not noted in review of the chart prior to signing ED Disposition - Plan for ED Patient: Referrals: Care Physician,No Primary [Primary Care Provider] -
--- NOTE | 2018-10-01 10:42 | ED.VIS.GEN ---
History of Present Illness Chief Complaint: Allergic Reaction Narrative: 22-year-old female presents with concern for an allergic reaction. She is currently taking Keflex for a skin infection. She woke up this morning with hives on her arms, chest, back, and abdominal wall. They are itchy. She also noticed slight swelling of her lower lip bilaterally but no tongue swelling or trouble swallowing. No shortness of breath. She denies previous similar symptoms. She was recently treated for a sexually transmitted infection but otherwise denies any recent medications. No unusual food intake or other possible causes for this. It is currently mild in severity. She has not yet tried medication. Past Medical History - Allergies and Home Meds Allergies/Adverse Reactions: Allergies cephalexin [From Keflex] Allergy (Verified 10/01/18 10:34) Hives doxycycline Allergy (Verified 10/01/18 10:34) Swelling sulfamethoxazole [From Bactrim] Allergy (Verified 10/01/18 10:34) Swelling trimethoprim [From Bactrim] Allergy (Verified 10/01/18 10:34) Swelling azithromycin [From Zithromax] Adverse Reaction (Verified 10/01/18 10:34) Vomiting Primary Care Physician: Care Physician,No Primary [Primary Care Provider] - Prior records reviewed: Yes Surgical History: noncontributory Smoking Status: Current every day smoker Review of Systems All systems negative except as indicated General: Denies: Chills, Fever, Sweats Eyes: Denies: Visual changes - bilaterally, Diplopia ENT: Reports: - - lip swelling Cardiovascular: Denies: Chest pain, Palpitations Respiratory: Denies: Dyspnea, Cough, Dyspnea on exertion Gastrointestinal: Denies: Abdominal pain, Nausea, Vomiting, Diarrhea, Melena, Hematochezia Genitourinary: Denies: Dysuria, Hematuria, Frequency Musculoskeletal: Denies: Back pain, Extremity Pain Skin: Reports: Rash Neurological: Denies: Headache, Weakness, Numbness Psych: Denies: Anxiety Endocrine: Denies: Polyuria Hematologic: Denies: Easy bleeding Allergy: Reports: Uticaria Physical Exam Vital Signs/Narrative: Vital Signs Temp Pulse Resp BP Pulse Ox 10/01/18 10:14 98.4 F 101 H 17 99/63 98 Inital Vital Signs reviewed: Yes General: Well nourished, Well developed, No Acute Distress Head: Normocephalic, Atraumatic Eyes: Perrl, EOMI ENT: Moist mucous membranes, No rhinorrhea, - - minimal lower lip swelling, no tongue swelling, no uvula edema. Voice normal. No stridor. Neck: Supple, Nontender Cardiovascular: Regular rate, Regular rhythm, No murmurs Respiratory: No distress, CTA bilaterally, Chest nontender Abdomen: Soft, Nontender, Nondistended, Normal bowel sounds Back: Nontender, Normal Inspection Extremities: Nontender, No edema Skin: Normal color, Rash - urticarial rash on abdominal wall, back, and chest wall Neurological: Alert, Oriented x3, Cranial nerves II-XII grossly intact, Normal Strength, Normal Sensation Psychological: Normal affect, Normal Mood Diagnostic/Tx/Re-eval - Medical Decision Making He was treated with prednisone and Benadryl here. On reexamination, she is markedly improved. She has no tongue swelling or trouble swallowing. Lip swelling has nearly resolved. Rash improved slightly but still present. She is not in distress. The only thing she can recall is the Keflex that she is currently on. Her skin infection has basically resolved so I think it is safe to discontinue it for now given her reaction. She will follow-up with her family physician in the next few days or return here if she is any worse or has any other symptoms of infection. ED Disposition - Plan for ED Patient: Disposition: Home or Assisted Living Diagnosis: Allergic reaction to drug Instructions: ALLERGIC REACTION, Drug Prescriptions: DiphenhydrAMINE [Benadryl] 25 mg PO TID PRN PRN #20 capsule PRN Reason: Rash/Topical Irritation Referrals: Care Physician,No Primary [Primary Care Provider] -
[2018-10-01] MEDS: DiphenhydrAMINE 25 MG Capsule 50 MG PO (11:00)
[2018-10-01] MEDS: predniSONE 20 MG Tablet 60 MG PO (11:00)
[2018-10-01 11:57] VITALS: PULSE 68; RESP 16
== END 2018-10-01 11:57 | disposition home or self-care (01) ==
PROVIDERS: Emergency Provider Emergency Medicine
DX: L50.0 Allergic urticaria (principal); T36.1X5A Adverse effect of cephalosporins and other beta-lactam antibiotics, initial encounter; F17.200 Nicotine dependence, unspecified, uncomplicated
CPT/HCPCS: 99283

== ENCOUNTER 2018-10-28 14:17 | Emergency (ER) | payer MEDICAID, SELFPAY ==
[2018-10-28 14:18] VITALS: BP 120/70; PULSE 99; RESP 17; TEMP 36.6; O2SAT 98; BMI 21.9
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
== END 2018-10-28 14:51 | disposition home or self-care (01) ==
LOC: ED 14:45
PROVIDERS: Emergency Provider Emergency Medicine; Family Provider Family Medicine
DX: S80.811A Abrasion, right lower leg, initial encounter (principal); T20.16XA Burn of first degree of forehead and cheek, initial encounter; X58.XXXA Exposure to other specified factors, initial encounter; Y93.89 Activity, other specified; Y92.89 Other specified places as the place of occurrence of the external cause; Y99.8 Other external cause status; Z72.0 Tobacco use
CPT/HCPCS: 99282

== ENCOUNTER 2018-12-09 06:38 | Emergency (ER) | payer MEDICAID, SELFPAY ==
[2018-12-09 06:40] VITALS: BP 124/82; PULSE 137; RESP 18; TEMP 37.1; O2SAT 100; BMI 21.0
--- NOTE | 2018-12-09 06:49 | ED.VIS.GEN ---
History of Present Illness Chief Complaint: Ear Problem Detail of Chief Complaint: Right ear pain Informant: Patient Onset: Yesterday Context: Gradual Onset Current Severity: Moderate Maximum Severity: Moderate Narrative: Patient states she had gradual onset of right ear pain yesterday. By last evening it was quite severe and she reports difficulty eating because of the ear pain. She denies fever or chills. She recently got over an upper respiratory infection. She has not noted any fever in the last 24 hours. She does not have history of frequent ear infections. Past Medical History - Allergies and Home Meds Allergies/Adverse Reactions: Allergies cephalexin [From Keflex] Allergy (Verified 12/09/18 06:39) Hives doxycycline Allergy (Verified 12/09/18 06:39) Swelling sulfamethoxazole [From Bactrim] Allergy (Verified 12/09/18 06:39) Swelling trimethoprim [From Bactrim] Allergy (Verified 12/09/18 06:39) Swelling azithromycin [From Zithromax] Adverse Reaction (Verified 12/09/18 06:39) Vomiting Primary Care Physician: Jimmie Hernandez [Primary Care Provider] - Prior records reviewed: Yes Past Medical History: - - Reviewed Surgical History: noncontributory Lives: Spouse/ Significant Other Smoking Status: Current every day smoker Review of Systems General: Denies: Chills, Fever Eyes: Denies: Visual changes - bilaterally ENT: Reports: Right ear pain. Denies: Sore throat Cardiovascular: Denies: Chest pain Respiratory: Denies: Dyspnea, Cough Gastrointestinal: Reports: Abdominal pain - Abdominal pain last evening, now resolved. Denies: Nausea, Vomiting, Diarrhea Genitourinary: Denies: Dysuria Musculoskeletal: Denies: Neck pain Skin: Denies: Rash Neurological: Denies: Headache Physical Exam Vital Signs/Narrative: Vital Signs Temp Pulse Resp BP Pulse Ox 12/09/18 06:40 98.8 F 137 H 18 124/82 H 100 Inital Vital Signs reviewed: Yes General: Well nourished, Well developed Head: Normocephalic Eyes: Perrl, EOMI ENT: Moist mucous membranes, - - TMs are clear bilaterally. Right external ear canal is mildly erythematous and edematous. No discharge noted. She does have a palpable preauricular lymph node. Neck: Supple Cardiovascular: Regular rhythm, Tachycardia Respiratory: No distress, CTA bilaterally Abdomen: Soft, Nontender Extremities: Nontender Skin: - - Multiple scabs noted on her skin in various stages of healing. Neurological: Alert, Oriented x3 Psychological: - - Anxious Diagnostic/Tx/Re-eval - Medical Decision Making Patient appears to have an early otitis externa. She does have reactive lymphadenopathy. She will be given Cipro eardrops, first dose given here. She will follow-up with her primary care physician if symptoms not improving. Impression: Right otitis externa ED Disposition - Plan for ED Patient: Disposition: Home or Assisted Living Diagnosis: Otitis externa Instructions: EXTERNAL EAR INFECTION (Adult) Referrals: Jimmie Hernandez [Primary Care Provider] - Additional Instructions: Cipro drops - 3 drops twice a day for 7 days
[2018-12-09] MEDS: Ciprofloxacin 0.3% 2.5ml Bottle 2 DRP RIGHT EAR (07:19)
== END 2018-12-09 07:24 | disposition home or self-care (01) ==
PROVIDERS: Emergency Provider Emergency Medicine; Family Provider Family Medicine
DX: H60.91 Unspecified otitis externa, right ear (principal); F17.200 Nicotine dependence, unspecified, uncomplicated
CPT/HCPCS: 99282

== ENCOUNTER 2018-12-11 23:09 | Emergency (ER) | payer MEDICAID, SELFPAY ==
[2018-12-11 23:09] VITALS: BP 138/63; PULSE 144; RESP 18; TEMP 37; O2SAT 98; BMI 21.2
--- NOTE | 2018-12-11 23:58 | CT_ITS ---
STUDY: CT ABDOMEN AND PELVIS WITHOUT CONTRAST REASON FOR EXAM: Female, 23 years old. Mid abdominal pain RADIATION DOSAGE (If Supplied By Facility): CTDIvol = ( 6.14 ) mGy, DLP = ( 299.17 ) mGycm TECHNIQUE: Transaxial images were obtained from the dome of the diaphragm to the symphysis pubis without oral contrast, and without intravenous contrast. Sagittal and coronal images were reconstructed. Individualized dose optimization techniques were used for this CT. COMPARISON: None. FINDINGS: The visualized lung bases are unremarkable. The visualized portions of the heart are within normal limits. Normal liver. Normal gallbladder and extrahepatic biliary system. Normal spleen. Normal pancreas. Normal bilateral adrenal glands. Normal right kidney. Normal left kidney. Normal visualized stomach. Normal small intestine. There is moderate stool in the colon. The appendix is visualized and appears normal. Normal abdominal aorta. Normal inferior vena cava. Normal retroperitoneum. There is a mildly thick-walled appearance of the bladder. Normal visualized uterus. Normal abdominal wall. Normal osseous structures. CT/Abdomen/Pelvis without Cont IMPRESSION: Moderate constipation. No evidence of appendicitis. No visualized renal ureteral bladder calculi. No evidence of hydronephrosis. Mild wall thickening of the bladder could consider cystitis. Electronically Signed: Magy Huang MD at 1:26 EDT Tel , Service support ,
--- NOTE | 2018-12-11 23:59 | ED.VIS.GEN ---
History of Present Illness Chief Complaint: Abd Pain Narrative: Patient is a 23-year-old female who presents with abdominal pain. She complains of sharp lower abdominal pain and bilateral lower back pain. Symptoms actually began a year ago. She states she was admitted and diagnosed with gastritis and also was told that she had some problems with her liver. She has had chronic abdominal pain since that time although she notes this is improved by a low-fat diet. She complains of vomiting and diarrhea since yesterday. No sick contacts with similar symptoms. She reports subjective fevers and chills but has not checked a temperature. No dysuria frequency urgency vaginal bleeding or discharge. Her pain is similar to the intermittent symptoms that she has had for 1 year. Past Medical History - Allergies and Home Meds Allergies/Adverse Reactions: Allergies cephalexin [From Keflex] Allergy (Verified 12/11/18 23:13) Hives doxycycline Allergy (Verified 12/11/18 23:13) Swelling sulfamethoxazole [From Bactrim] Allergy (Verified 12/11/18 23:13) Swelling trimethoprim [From Bactrim] Allergy (Verified 12/11/18 23:13) Swelling azithromycin [From Zithromax] Adverse Reaction (Verified 12/11/18 23:13) Vomiting Primary Care Physician: Jimmie Hernandez [Primary Care Provider] - Past Medical History: - - Chronic abdominal pain Surgical History: noncontributory Smoking Status: Current every day smoker Review of Systems All systems negative except as indicated General: Reports: Chills, Fever, Subjective Cardiovascular: Denies: Chest pain Respiratory: Denies: Dyspnea Gastrointestinal: Reports: Abdominal pain, Nausea, Vomiting, Diarrhea Genitourinary: Denies: Dysuria, Hematuria, Frequency Physical Exam Vital Signs/Narrative: Vital Signs Temp Pulse Resp BP Pulse Ox 12/11/18 23:09 98.6 F 144 H 18 138/63 H 98 Inital Vital Signs reviewed: Yes General: Well nourished Head: Normocephalic Eyes: EOMI ENT: Moist mucous membranes Neck: Supple Cardiovascular: Regular rate, Regular rhythm Respiratory: No distress, CTA bilaterally Abdomen: Soft, Tender - Diffuse tenderness, nonfocal, no guarding or rebound, normal bowel sounds and nondistended Skin: Normal color Neurological: Alert Psychological: Normal affect Diagnostic/Tx/Re-eval Impressions Abdomen/Pelvis CT 12/11/18 23:58 IMPRESSION: Moderate constipation. No evidence of appendicitis. No visualized renal ureteral bladder calculi. No evidence of hydronephrosis. Mild wall thickening of the bladder could consider cystitis. Electronically Signed: Magy Huang MD at 1:26 EDT Tel , Service support , 12/11/18 23:58 Abdomen/Pelvis without Cont [CT] Stat Laboratory Results 12/12/18 12/12/18 12/12/18 00:06 00:06 00:15 WBC 5.6 RBC 3.68 L Hgb 11.8 L Hct 36.2 L MCV 98.4 MCH 32.1 H MCHC 32.6 RDW Std Deviation 55.6 H RDW Coeff of Marlon 15.3 H Plt Count 219 MPV 9.2 Immature Gran % (Auto) 0.500 Neut % (Auto) 94.1 H Lymph % (Auto) 4.7 L Douglas % (Auto) 0.5 Eos % (Auto) 0.0 Baso % (Auto) 0.2 Absolute Neuts (auto) 5.2 Absolute Lymphs (auto) 0.26 L Nucleated RBC % 0 Differential Comment SCANNED Toxic Granulation 1+ Sodium 137 Potassium 3.9 Chloride 104 Carbon Dioxide 27.0 Anion Gap 6 BUN 6 L Creatinine 0.78 Estim Creat Clear Calc 113.41 Est GFR (MDRD) Af Amer 118 Est GFR (MDRD) Non-Af 97 BUN/Creatinine Ratio 7.6 L Glucose 110 H Calcium 8.8 Total Bilirubin 1.00 AST 269 H ALT 231 H Alkaline Phosphatase 192 H Total Protein 7.1 Albumin 3.5 Globulin 3.6 Albumin/Globulin Ratio 1.0 Urine Color Urine Clarity Urine pH Ur Specific [employer] [place] Urine Protein Urine Glucose (UA) Urine Ketones Urine Occult Blood Urine Nitrite Urine Bilirubin Urine Urobilinogen Ur Leukocyte Esterase Urine RBC Urine WBC Ur Squamous Epith Cells Urine Bacteria Urine Mucus Urine Test Negative 12/12/18 00:15 WBC RBC Hgb Hct MCV MCH MCHC RDW Std Deviation RDW Coeff of Marlon Plt Count MPV Immature Gran % (Auto) Neut % (Auto) Lymph % (Auto) Douglas % (Auto) Eos % (Auto) Baso % (Auto) Absolute Neuts (auto) Absolute Lymphs (auto) Nucleated RBC % Differential Comment Toxic Granulation Sodium Potassium Chloride Carbon Dioxide Anion Gap BUN Creatinine Estim Creat Clear Calc Est GFR (MDRD) Af Amer Est GFR (MDRD) Non-Af BUN/Creatinine Ratio Glucose Calcium Total Bilirubin AST ALT Alkaline Phosphatase Total Protein Albumin Globulin Albumin/Globulin Ratio Urine Color Yellow Urine Clarity Sl. Cloudy Urine pH 6.0 Ur Specific [employer] [place] 1.010 Urine Protein Negative Urine Glucose (UA) Normal Urine Ketones Negative Urine Occult Blood Negative Urine Nitrite Negative Urine Bilirubin Negative Urine Urobilinogen Normal Ur Leukocyte Esterase 100 H Urine RBC 0 SEEN Urine WBC 5-10 SEEN Ur Squamous Epith Cells 0-5 SEEN Urine Bacteria 1+ Urine Mucus 1+ Urine Test - Medical Decision Making Patient was symptomatically treated with fluids, Toradol, Zofran. UA is suggestive of cystitis which is supported on CT. No other acute abdominal process on CT imaging. Her labs are notable for elevated transaminases which are slightly worse than prior although her history she does have a history of hepatitis C as well. She was advised to follow-up as an outpatient. We will treat cystitis with Cipro. She understands to return for new or worsening symptoms and was discharged home. ED Disposition - Plan for ED Patient: Disposition: Home or Assisted Living Diagnosis: Chronic abdominal pain, Elevated liver enzymes, Cystitis Instructions: Understanding Urinary Tract Infections (UTIs) Prescriptions: Ciprofloxacin [Cipro] 500 mg PO BID #14 tab Prescription Printed Referrals: Jimmie Hernandez [Primary Care Provider] -
[2018-12-12 00:15] LABS: Absolute Lymphocyte Count 0.26 X10^3/uL (0.83-4.51); Absolute Neutrophil Count 5.2 X10^3/uL (2.0-7.7); Basophil# 0.01 X10^3/uL; Basophil% 0.2 % (0-1); Hematocrit 36.2 % (37-47); Hemoglobin 11.8 g/dL (12.0-15.0); Lymphocyte # 0.26 X10^3/ul (4.0); Lymphocyte % 4.7 % (19-41); Mean Corp Hgb Conc 32.6 g/dL (32-36); Mean Corpuscular Hgb 32.1 pg (27.0-32.0); Mean Corpuscular Volume 98.4 fL (81-99); Mean Platelet Vol. 9.2 fl (6.2-12.0); Monocyte# 0.03 X10^3/uL; Monocyte% 0.5 % (0-10); NRBC Flagged by Analyzer 0 % (0-5); Neutrophil # 5.24 X10^3/uL (2.7-7.7); Neutrophil % 94.1 % (47-70); POSITIVE DIFFERENTIAL YES; POSITIVE MORPHOLOGY YES; Platelet Count 219 K/mm3 (150-450); RBC Distribution Width CV 15.3 % (11.6-14.6); RBC Distribution Width SD 55.6 fl (35.1-43.9); Red Blood Count 3.68 M/mm3 (4.2-5.4); White Blood Count 5.6 K/mm3 (4.4-11.0)
[2018-12-12] MEDS: 0.9% Normal Saline 1,000 ML 1000 ML IV (00:16)
[2018-12-12] MEDS: Ketorolac 30 MG/ML Syringe IV (00:16)
[2018-12-12] MEDS: Ondansetron 4 MG/2 ML Vial IV (00:16)
[2018-12-12 00:21] LABS: Differential Indicated SCAN CRITERIA MET
[2018-12-12 00:22] LABS: Red Blood Cells-Urine 0 SEEN /hpf (0-5)
[2018-12-12 00:26] LABS: Color, Urine Yellow (Yellow); Glucose, Dipstick Normal (Normal); Ketone-Dipstick Negative (Negative); Leukocyte Esterase-Dipstick 100 /ul (Negative); Nitrite-Dipstick Negative (Negative); Occult Blood-Urine Negative /ul (Negative); Protein-Dipstick Negative (Negative); Urine Bilirubin Dipstick Negative (Negative); Urine Clarity Sl. Cloudy (Clear); Urine Urobilinogen Normal (Normal)
[2018-12-12 00:29] LABS: Internal QC Validated? YES +Cl - CLEAR BKGD; Pregnancy, Urine Negative Negative
[2018-12-12 00:39] LABS: Bacteria 1+ /hpf (None Seen); Mucous, Urine 1+ /hpf (<or=2+); Squamous Epithelial Cells - UA 0-5 SEEN /hpf (5-10); White Blood Cells 5-10 SEEN /hpf (0-5)
[2018-12-12 00:40] LABS: AST(SGOT) 269 U/L (15-37); Alanine Aminotransfer ALT/SGPT 231 U/L (13-56); Albumin, Serum 3.5 g/dL (3.2-5.0); Alkaline Phosphatase 192 U/L (45-117); Anion Gap 6 (5-15); BUN 6 mg/dL (7-18); BUN/Creat Ratio 7.6 RATIO (10-20); Calcium,Total 8.8 mg/dL (8.5-10.1); Chloride 104 mmol/L (98-107); Creatinine, Serum 0.78 mg/dL (0.55-1.02); EST Glomerular Filtration Rate 97 mL/min (>60); Est Glom Filt Rate - Afr Amer 118 mL/min (>60); Estimated Creatinine Clearance 113.41 ml/min; Globulin 3.6 g/dL (2.2-4.2); Glucose 110 mg/dL (74-106); Potassium 3.9 mmol/L (3.5-5.1); Protein, Total 7.1 g/dL (6.4-8.2); Sodium Level 137 mmol/L (136-145)
[2018-12-12 00:49] LABS: Differential Comment SCANNED; Toxic Granulation 1+
[2018-12-12 01:14] VITALS: BP 136/74; PULSE 99; RESP 16; O2SAT 97
[2018-12-12 02:05] VITALS: BP 132/78; PULSE 82; RESP 17; O2SAT 96
== END 2018-12-12 02:08 | disposition home or self-care (01) ==
PROVIDERS: Emergency Provider Emergency Medicine; Family Provider Family Medicine
DX: N30.90 Cystitis, unspecified without hematuria (principal); R10.30 Lower abdominal pain, unspecified; G89.29 Other chronic pain; R74.0 Nonspecific elevation of levels of transaminase and lactic acid dehydrogenase [LDH]; F17.200 Nicotine dependence, unspecified, uncomplicated
CPT/HCPCS: 74176; 80053; 81001; 81025; 85025; 87086; 96361; 96374; 96375; 99284; J7030; A4216; J2405

== ENCOUNTER 2020-02-21 19:01 | Emergency (ER) | payer MEDICAID, SELFPAY ==
[2020-02-21 19:02] VITALS: BP 115/86; PULSE 94; RESP 16; TEMP 36.6; O2SAT 100; BMI 27.5
[2020-02-21] MEDS: Acetaminophen 500 MG Tablet 1000 MG PO (19:20)
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
== END 2020-02-21 20:44 | disposition home or self-care (01) ==
PROVIDERS: Emergency Provider Emergency Medicine; PCP Family Medicine
DX: M62.838 Other muscle spasm (principal); Z87.891 Personal history of nicotine dependence; V47.0XXA Car driver injured in collision with fixed or stationary object in nontraffic accident, initial encounter; Y93.I9 Activity, other involving external motion; Y92.411 Interstate highway as the place of occurrence of the external cause; Y99.8 Other external cause status
CPT/HCPCS: 70450; 71046; 72040; 99284

== ENCOUNTER 2021-06-19 08:16 | Emergency (ER) | payer OTHER, MEDICAID, SELFPAY ==
[2021-06-19 08:17] VITALS: BP 130/74; PULSE 92; RESP 16; TEMP 36.8; O2SAT 99; BMI 27.8
--- NOTE | 2021-06-19 08:36 | EDS_ITS ---
HPI History of Present Illness Chief Complaint: Sore Throat Informant: patient Narrative Narrative: Patient's had a sore throat for about 5 days. No fevers. She also has a little bit of nasal congestion and drainage. No cough or earache. No real myalgias or headaches. She has not had Covid vaccine. No known exposure. Her concern is that she wants to go see her family on a few days off and does not want to be contagious. Nothing really makes her symptoms better or worse. [facility] Medical History GERD (gastroesophageal reflux disease) Home Medications dicyclomine 10 mg PO TIDAC 02/21/20 [History Last Taken Unknown] cetirizine 10 mg PO DAILY 06/19/21 [History Last Taken Unknown] omeprazole 20 mg PO PRN PRN 06/19/21 [History Last Taken Unknown] Allergy/AdvReac Type Severity Reaction Status Date / Time No Known Allergies Allergy Verified 06/19/21 08:19 Family History Other Chronic ITP (idiopathic thrombocytopenic purpura) Social History Smoking Status: Unknown if ever smoked ROS ROS ED Constitutional Constitutional ED: Denies chills, fever(s) or sweats Eyes Eyes: Denies blurry vision ENT ENT ED: Reports rhinorrhea and sore throat; Denies ear pain Cardiovascular Cardiovascular: Denies chest pain Respiratory/Chest Respiratory/Chest: Denies cough or dyspnea Gastrointestinal Gastrointestinal: Denies abdominal pain, nausea or vomiting Genitourinary Genitourinary ED: Denies dysuria Musculoskeletal Musculoskeletal: Denies myalgias Integumentary Denies rash Neurologic Neurologic: Denies headache(s) Allergic/Immunologic Allergic/Immunologic ED: Denies mouth swelling or urticaria EXAM Physical Exam Const Vital Signs: 06/19/21 08:17 Temperature 98.2 F Temperature Source Temporal Pulse Rate 92 Respiratory Rate 16 Blood Pressure 130/74 H Blood Pressure Mean 92 Pulse Ox 99 Oxygen Delivery Method Room Air Positive well nourished and well developed General Appearance ED: well developed and NAD; Negative for cyanotic or diaphoretic HEENT Reports TM's clear and moist mucous membranes HEENT Narrative: Throat some mild erythema but no swelling or exudate. No change in voice. No dental tenderness. Patient also has no sinus tenderness. Nasal passages are clear now. Tympanic membranes are normal. Negative for tenderness Tympanic Membrane ED: Yes TM's clear Eyes EOMs intact bilaterally Neck no lymphadenopathy and supple Resp normal respiratory effort and clear to auscultation bilaterally Cardio regular rate and regular rhythm Back/Spine no CVA tenderness Neuro Sensorium / Orientation: alert Psych mental status grossly normal Skin no rashes or lesions noted Discharge Plan Triage Chief Complaint: Sore Throat ED Provider: Kevin Lim Dx/Rx/DC Orders Clinical Impression: Pharyngitis, Acute viral syndrome Instructions: ED Pharyngitis, Viral Prescriptions: No Action dicyclomine 10 MG capsule 10 mg PO TIDAC RF: 0 cetirizine 10 mg tablet 10 mg PO DAILY RF: 0 omeprazole 20 mg capsule,delayed release(DR/EC) 20 mg PO PRN PRN (Reason: Heartburn) RF: 0 Primary Care Provider: Jadon Lema Referrals: Jadon Lema MD [Primary Care Provider] - 3-5 Days if not improving Disposition Disposition: Home, Self Care
[2021-06-19 09:31] VITALS: RESP 16
== END 2021-06-19 09:31 | disposition home or self-care (01) ==
PROVIDERS: Emergency Provider Emergency Medicine; PCP Family Medicine; Visit Provider Emergency Medicine
DX: B34.9 Viral infection, unspecified (principal); J02.9 Acute pharyngitis, unspecified; K21.9 Gastro-esophageal reflux disease without esophagitis; Z79.899 Other long term (current) drug therapy
CPT/HCPCS: 87811; 87880; 99282

== ENCOUNTER → 2021-09-22 | Outpatient (CLI) | payer OTHER, MEDICAID, SELFPAY ==
[2021-09-22 18:01] LABS: Absolute Lymphocyte Count 2.57 X10^3/uL (0.83-4.51); Absolute Neutrophil Count 2.8 X10^3/uL (2.0-7.7); Basophil# 0.05 X10^3/uL; Basophil% 0.8 % (0-1); Eosinophil# 0.09 X10^3/uL; Eosinophils% 1.5 % (0-5); Hematocrit 35.6 % (37-47); Hemoglobin 11.5 g/dL (12.0-15.0); Lymphocyte # 2.57 X10^3/ul (0.83-4.51); Lymphocyte % 42.5 % (19-41); Mean Corp Hgb Conc 32.3 g/dL (32-36); Mean Corpuscular Hgb 29.9 pg (27.0-32.0); Mean Corpuscular Volume 92.5 fL (81-99); Mean Platelet Vol. 10.6 fl (6.2-12.0); Monocyte# 0.48 X10^3/uL; Monocyte% 7.9 % (0-10); NRBC Flagged by Analyzer 0 % (0-5); Neutrophil # 2.84 X10^3/uL (2.7-7.7); Neutrophil % 47.1 % (47-70); Platelet Count 307 K/mm3 (150-450); RBC Distribution Width CV 12.3 % (11.6-14.6); RBC Distribution Width SD 41.7 fl (35.1-43.9); Red Blood Count 3.85 M/mm3 (4.2-5.4)
[2021-09-22 18:45] LABS: Vitamin B12 1198 pg/mL (211-911); Vitamin D,25 Hydroxy 48.4 ng/mL
[2021-09-22 18:51] LABS: ALB/GLOB Ratio 1.2 RATIO (0.9-2.4); AST(SGOT) 23 U/L (15-37); Alanine Aminotransfer ALT/SGPT 42 U/L (13-56); Albumin, Serum 4.1 g/dL (3.2-5.0); Alkaline Phosphatase 85 U/L (45-117); Anion Gap 7 (5-15); BUN 9 mg/dL (7-18); BUN/Creat Ratio 12.3 RATIO (10-20); Calcium,Total 9.2 mg/dL (8.5-10.1); Chloride 107 mmol/L (98-107); Creatinine, Serum 0.73 mg/dL (0.55-1.02); EST Glomerular Filtration Rate 103 mL/min (>60); Est Glom Filt Rate - Afr Amer 124 mL/min (>60); Ferritin 28 ng/mL (8-252); Free T3 2.5 pg/mL (2.18-3.98); Globulin 3.4 g/dL (2.2-4.2); Glucose 111 mg/dL (74-106); Potassium 3.9 mmol/L (3.5-5.1); Protein, Total 7.5 g/dL (6.4-8.2); Sodium Level 139 mmol/L (136-145); T4 Total, Thyroxin 8.2 ug/dL (4.8-13.9); Thyroid Stim Hormone (TSH) 2.16 uIU/mL (0.358-3.74)
[2021-10-01 22:20] LABS: Anti-Thyroglobulin AB < 1.0 IU/mL (0.0-0.9); Thyroglobulin, Serum Qt. 7.4 ng/mL (1.5-38.5); Thyroid Peroxidase AB < 8 IU/mL (0-34)
== END | disposition home or self-care (01) ==
LOC: MFPLAB 15:03
PROVIDERS: PCP Family Medicine; Referring Provider Family Medicine; Visit Provider Family Medicine
DX: R53.83 Other fatigue (principal); Z83.49 Family history of other endocrine, nutritional and metabolic diseases
CPT/HCPCS: 36415; 80053; 81291; 82306; 82607; 82728; 84432; 84436; 84443; 84481; 85025; 86376; 86800

== ENCOUNTER → 2022-04-13 | Outpatient (CLI) | payer OTHER, MEDICAID, SELFPAY ==
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
== END | disposition home or self-care (01) ==
LOC: MTRAD 14:00
PROVIDERS: PCP Family Medicine; Referring Provider Nurse Practitioner Family; Visit Provider Nurse Practitioner Family
DX: M54.2 Cervicalgia (principal)
CPT/HCPCS: 72040

== ENCOUNTER → 2022-04-18 | Outpatient (CLI) | payer OTHER, MEDICAID, SELFPAY ==
--- NOTE | 2022-04-18 16:11 | RAD_ITS ---
INDICATION: PELVIC PAIN EXAMINATION/TECHNIQUE: X-RAY - XR Pelvis 1 or 2 Views COMPARISON: None. FINDINGS: PELVIC BONES: No displaced fracture, destructive or sclerotic lesions. Note that overlapping bowel shadows may however obscure fine detail. Sacroiliac joints are unremarkable. No widening of the pubic symphysis. HIPS: The articular structures are unremarkable. No displaced fracture seen in this frontal view. SOFT TISSUES: No soft tissue swelling or gas. RAD/Pelvis 1 or 2 Views IMPRESSION: No evidence of displaced pelvic or hip fracture. Electronically Signed: Saeid Ellsworth MD at 21:44 EST ,
== END | disposition home or self-care (01) ==
PROVIDERS: PCP Family Medicine; Referring Provider Nurse Practitioner Family; Visit Provider Nurse Practitioner Family
DX: R10.2 Pelvic and perineal pain (principal)
CPT/HCPCS: 72170

== ENCOUNTER 2022-05-18 13:30 | Outpatient (RCR) | payer OTHER, MEDICAID, SELFPAY ==
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
--- NOTE | 2022-09-21 14:30 | HP.PT.NRP ---
Patient Information Patient Information: CLAY BOWLING was seen in my office for initial evaluation on 04/20/22. The following Plan of Care was established for this patient: POC Established Initial Frequency: 2x /Week Initial Duration: 4 Weeks Anticipated Interventions Patient/Client Instruction: Educate patient on: Condition and Plan of Care For the Purpose of:: To decrease pain, To increase ROM, To improve muscle performance and motor function, To improve ability to perform ADL's, To increase tolerance to activity/condition/position, To improve ability of physical actions for home/community/work/leisure, To improve health of tissue, To decrease soft tissue restriction, To increase flexibility/ROM and To prevent re-injury Therapeutic Exercise to Include: Strength training, Endurance training, Balance training, Body mechanics, Postural training, Active ROM and Jimy Exercises For the Purpose of:: To decrease pain, To increase ROM, To improve muscle performance and motor function, To improve ability to perform ADL's, To increase tolerance to activity/condition/position, To improve ability of physical actions for home/community/work/leisure, To improve health of tissue, To decrease soft tissue restriction, To increase flexibility/ROM, To prevent re-injury and To improve tolerance to ADL's Manual Therapy Techniques to Include: Mobilization Comment: TRACTION For the Purpose of:: To decrease pain, To increase ROM, To improve nutrient delivery to tissue, To increase oxygenation perfusion, To improve health of tissue and To decrease soft tissue restriction TENS: Yes IF ES: Yes Cryotherapy (ice pack, ice massage): Yes Thermo therapy (hot pack): Yes Ultrasound (thermal/non thermal): Yes For the Purpose of:: To decrease pain, To increase ROM, To improve nutrient delivery to tissue, To increase oxygenation perfusion, To improve health of tissue and To decrease soft tissue restriction Last Seen Last Seen: This patient was last seen in our office . Pertinent comments regarding their Physical therapy will appear below: Patient was seen for PT for shoulder pain thus is d/c to HEP At this point I will be discontinuing this patient from physical therapy. I would be happy to see this patient again in the future if found appropriate by the physician. Thank you! Carlito Patel, PT, Cert MDT, OCS Balance/Gait/Functional tests Balance/Special Test Scores Oswestry Neck Score: 19
== END 2022-05-18 19:00 | disposition home or self-care (01) ==
LOC: PT 13:30
PROVIDERS: PCP Family Medicine; Referring Provider Nurse Practitioner Family; Visit Provider Nurse Practitioner Family
DX: M54.2 Cervicalgia (principal); M25.519 Pain in unspecified shoulder; M54.10 Radiculopathy, site unspecified
CPT/HCPCS: 97110; 97161

== ENCOUNTER → 2024-03-07 | Outpatient (CLI) | payer OTHER, SELFPAY ==
[2024-03-07 17:46] LABS: Absolute Lymphocyte Count 2.54 X10^3/uL (0.83-4.51); Absolute Neutrophil Count 3.8 X10^3/uL (2.0-7.7); Basophil# 0.06 X10^3/uL; Basophil% 0.8 % (0-1); Eosinophil# 0.17 X10^3/uL; Eosinophils% 2.4 % (0-5); Hematocrit 36.8 % (37-47); Hemoglobin 11.7 g/dL (12.0-15.0); Lymphocyte # 2.54 X10^3/ul (0.83-4.51); Lymphocyte % 35.6 % (19-41); Mean Corp Hgb Conc 31.8 g/dL (32-36); Mean Corpuscular Volume 94.4 fL (81-99); Mean Platelet Vol. 10.1 fl (6.2-12.0); Monocyte# 0.55 X10^3/uL; Monocyte% 7.7 % (0-10); NRBC Flagged by Analyzer 0 % (0-5); Neutrophil # 3.81 X10^3/uL (2.7-7.7); Neutrophil % 53.4 % (47-70); Platelet Count 318 K/mm3 (150-450); RBC Distribution Width CV 12.2 % (11.6-14.6); RBC Distribution Width SD 42.8 fl (35.1-43.9); White Blood Count 7.1 K/mm3 (4.4-11.0)
== END | disposition home or self-care (01) ==
LOC: MFPLAB 15:45
PROVIDERS: PCP Family Medicine; Referring Provider Family Medicine; Visit Provider Family Medicine
DX: D75.9 Disease of blood and blood-forming organs, unspecified (principal)
CPT/HCPCS: 36415; 85025

== ENCOUNTER 2024-03-12 16:30 | Outpatient (RCR) | payer OTHER, SELFPAY ==
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
== END 2024-03-12 19:00 | disposition home or self-care (01) ==
LOC: PT 16:30
PROVIDERS: PCP Family Medicine; Referring Provider Family Medicine; Visit Provider Family Medicine
DX: S81.819D Laceration without foreign body, unspecified lower leg, subsequent encounter (principal)
CPT/HCPCS: 97110; 97161; 97530

== ENCOUNTER → 2024-10-28 | Outpatient (CLI) | payer OTHER, SELFPAY ==
--- NOTE | 2024-10-28 18:01 | RAD_ITS ---
PROCEDURE: CHEST PA AND LATERAL 10/28/2024 REASON FOR EXAM: COPD TECHNIQUE: CHEST PA AND LATERAL COMPARISON: 02/21/2020. FINDINGS: The heart is normal in size. The lungs are clear. No acute osseous abnormalities. RAD/Chest PA and Lateral IMPRESSION: NO ACUTE FINDINGS. Reading Location: [id number]
== END | disposition home or self-care (01) ==
LOC: RAD.FUTURE 17:56
PROVIDERS: PCP Family Medicine; Visit Provider Family Medicine
DX: J44.9 Chronic obstructive pulmonary disease, unspecified (principal)
CPT/HCPCS: 71046

== ENCOUNTER → 2025-02-19 | Outpatient (CLI) | payer OTHER, SELFPAY ==
[2025-02-19 18:11] LABS: CRP < 3.00 mg/L (0.0-3.0)
[2025-02-21 14:09] LABS: ANTINUCLEAR ANTIBODIES DIRECT Positive (Negative)
[2025-02-21 17:08] LABS: Cytoplasmic Ab (C-ANCA) <1:20 titer (Neg:<1:20); Perinuclear Ab (P-ANCA) <1:20 titer (Neg:<1:20)
== END | disposition home or self-care (01) ==
LOC: MFPLAB 13:59
PROVIDERS: PCP Family Medicine; Visit Provider Family Medicine
DX: L42 Pityriasis rosea (principal)
CPT/HCPCS: 36415; 85652; 86037; 86038; 86140